=== PATIENT | female | born 1950 | race Caucasian/White ===

== ENCOUNTER → 2016-11-14 | Outpatient (CLI) | payer OTHER ==
[~2016-11-14] MED LIST: AMOX PO; FURO20 PO; KLOR20TA6 PO; LIPI40TA PO; LISI40TA PO; METF-324 PO; METO50TA11 PO; PAXI20TA26 PO; PREMPRO
[2016-11-14 13:43] LABS: AUTOMATED NEUTROPHIL # 4.2 TH/MM3 (1.8-7.7); BASOPHIL % 0.4 % (0.0-2.0); EOSINOPHIL # 0.2 TH/MM3 (0-0.4); EOSINOPHIL % 2.7 % (0.0-4.0); HEMATOCRIT 36.4 % (35.0-46.0); HEMO FLAGS DIFF FINAL; LYMPH % 32.1 % (9.0-44.0); LYMPHOCYTE # 2.3 TH/MM3 (1.0-4.8); MEAN CELL VOLUME 88.9 FL (80.0-100.0); MEAN CORPUSCULAR HEMOGLOBIN 30.4 PG (27.0-34.0); MEAN CORPUSCULAR HGB CONC 34.2 % (32.0-36.0); MONO % 6.1 % (0.0-8.0); NEUT % 58.7 % (16.0-70.0); PLATELET COUNT 315 TH/MM3 (150-450); WHITE BLOOD COUNT 7.2 TH/MM3 (4.0-11.0)
[2016-11-14 13:57] LABS: ANION GAP 9 MEQ/L (5-15); AST (GOT) 43 U/L (15-37); BICARBONATE 29.5 MEQ/L (21.0-32.0); BLOOD UREA NITROGEN 18 MG/DL (7-18); CHLORIDE 100 MEQ/L (98-107); GLOMERULAR FILTRATION RATE 58 ML/MIN (>89); GLUCOSE,FASTING 174 MG/DL (74-99); POTASSIUM 4.1 MEQ/L (3.5-5.1); SODIUM (NA) 138 MEQ/L (136-145)
[2016-11-14 14:03] LABS: ALKALINE PHOSPHATASE 68 U/L (45-117); ALT (GPT) 55 U/L (10-53); HDL CHOLESTEROL 54.3 MG/DL (40.0-60.0); LDL CHOLESTEROL 83 MG/DL (0-99); TOTAL BILIRUBIN ADULT 0.4 MG/DL (0.2-1.0)
== END ==
LOC: PLAB 08:12
PROVIDERS: ATTEND Family Medicine
DX: E78.2 Mixed hyperlipidemia (principal); E11.65 Type 2 diabetes mellitus with hyperglycemia; I10 Essential (primary) hypertension; F41.8 Other specified anxiety disorders; I73.9 Peripheral vascular disease, unspecified; Z68.34 Body mass index [BMI] 34.0-34.9, adult
CPT/HCPCS: 80053; 80061; 85025

== ENCOUNTER → 2017-08-28 | Outpatient (CLI) | payer OTHER ==
[2017-08-28 09:53] LABS: AUTOMATED NEUTROPHIL # 4.7 TH/MM3 (1.8-7.7); BASOPHIL % 0.5 % (0.0-2.0); EOSINOPHIL # 0.2 TH/MM3 (0-0.4); HEMATOCRIT 38.7 % (35.0-46.0); HEMO FLAGS DIFF FINAL; LYMPH % 27.6 % (9.0-44.0); LYMPHOCYTE # 2.1 TH/MM3 (1.0-4.8); MEAN CELL VOLUME 90.6 FL (80.0-100.0); MEAN CORPUSCULAR HGB CONC 33.1 % (32.0-36.0); MONO % 6.9 % (0.0-8.0); PLATELET COUNT 337 TH/MM3 (150-450); RED BLOOD COUNT 4.27 MIL/MM3 (4.00-5.30); RED CELL DISTRIBUTION WIDTH 14.7 % (11.6-17.2); WHITE BLOOD COUNT 7.6 TH/MM3 (4.0-11.0)
[2017-08-28 10:35] LABS: ANION GAP 11 MEQ/L (5-15); AST (GOT) 87 U/L (15-37); BICARBONATE 25.4 MEQ/L (21.0-32.0); BLOOD UREA NITROGEN 23 MG/DL (7-18); CHLORIDE 102 MEQ/L (98-107); GLOMERULAR FILTRATION RATE 47 ML/MIN (>89); GLUCOSE,FASTING 210 MG/DL (74-99); SODIUM (NA) 138 MEQ/L (136-145)
[2017-08-28 10:46] LABS: ALKALINE PHOSPHATASE 93 U/L (45-117); ALT (GPT) 83 U/L (10-53); FREE T4 1.01 NG/DL (0.76-1.46); TOTAL BILIRUBIN ADULT 0.3 MG/DL (0.2-1.0)
== END ==
LOC: PLAB 07:57
PROVIDERS: ATTEND Family Medicine
DX: E78.2 Mixed hyperlipidemia (principal); E11.65 Type 2 diabetes mellitus with hyperglycemia; F41.8 Other specified anxiety disorders; I10 Essential (primary) hypertension; Z68.34 Body mass index [BMI] 34.0-34.9, adult
CPT/HCPCS: 36415; 80053; 84439; 84443; 85025

== ENCOUNTER → 2017-10-15 | Outpatient (CLI) | payer OTHER ==
[2017-10-15 09:59] LABS: ALBUMIN 3.9 GM/DL (3.4-5.0); AST (GOT) 64 U/L (15-37); BICARBONATE 31.2 MEQ/L (21.0-32.0); BLOOD UREA NITROGEN 25 MG/DL (7-18); CHLORIDE 99 MEQ/L (98-107); CREATININE 1.22 MG/DL (0.50-1.00); GLOMERULAR FILTRATION RATE 44 ML/MIN (>89); GLUCOSE,FASTING 210 MG/DL (74-99); SODIUM (NA) 137 MEQ/L (136-145)
[2017-10-15 10:01] LABS: CHOLESTEROL 162 MG/DL (120-200)
[2017-10-15 10:04] LABS: ALKALINE PHOSPHATASE 105 U/L (45-117); ALT (GPT) 81 U/L (10-53); HDL CHOLESTEROL 42.6 MG/DL (40.0-60.0); LDL CHOLESTEROL 70 MG/DL (0-99); TOTAL BILIRUBIN ADULT 0.3 MG/DL (0.2-1.0); TOTAL PROTEIN 7.6 GM/DL (6.4-8.2); TRIGLYCERIDES 249 MG/DL (42-150)
== END ==
LOC: PLAB 07:59
PROVIDERS: ATTEND Family Medicine
DX: R74.8 Abnormal levels of other serum enzymes (principal); E78.2 Mixed hyperlipidemia; I10 Essential (primary) hypertension; E11.65 Type 2 diabetes mellitus with hyperglycemia; R79.89 Other specified abnormal findings of blood chemistry
CPT/HCPCS: 36415; 80053; 80061

== ENCOUNTER 2018-02-18 09:49 | Emergency (ER) | payer OTHER ==
[~2018-02-18] VITALS: Ht 171.4 cm; Wt 103.9 kg
[2018-02-18 09:53] VITALS: BP 156/69; PULSE 84; RESP 16; TEMP 97.9; O2SAT 97
[2018-02-18] MEDS ORDERED: FURO1TAB60 PO (10:09)
[2018-02-18] MEDS ORDERED: LIPI40TA PO (10:09)
[2018-02-18] MEDS ORDERED: LISI40TA PO (10:09)
[2018-02-18] MEDS ORDERED: ZOLO50TA PO (10:09)
[2018-02-18] MEDS ORDERED: METF-382 PO (10:09)
[2018-02-18] MEDS ORDERED: LANTUS2P SQ (10:09)
[2018-02-18] MEDS ORDERED: TOPR50TA PO (10:09)
[2018-02-18] MEDS ORDERED: GLIM1 PO (10:09)
--- NOTE | 2018-02-18 10:22 | PD ---
HPI Chief Complaint: Injury Time Seen by Provider: 10:00 Travel History International Travel<30 days: No Contact w/Intl Traveler<30days: No Traveled to known affect area: No History of Present Illness HPI 67-year-old female presents emergency department for evaluation of right knee pain that started after chiropractic adjustment. Patient states that Friday she had increased difficulty walking and thought the pain would go away however, he has not which is the reason why she presents today. Says she has had multiple adjustments previously without any issues. patient states that the pain is 3/4 out of 10 with rest and increases significantly with walking. Says the pain is located in the joint line says it does feel swollen. No radiation of pain. patient says she has had multiple injuries to this knee previously and has seen Ortho for her knee but this is been 15 years ago. Patient denies any numbness or tingling of the extremity. Denies any weakness. PFSH Past Medical History Hx Anticoagulant Therapy: No Cardiovascular Problems: Yes (htn on meds) High Cholesterol: Yes Diabetes: Yes (type 2) Patient Takes Glucophage: Yes Diminished Hearing: No Hypertension: Yes Influenza Vaccination: No (ALLERGIC TO ) ?: Not Menopausal: Yes Tubal Ligation: Yes Past Surgical History Appendectomy: Yes Cholecystectomy: Yes Tonsillectomy: Yes (1953) Other Surgery: Yes (LIPOMA RIGHT JAW) Social History Alcohol Use: Yes (RARELY) Tobacco Use: No Substance Use: No Allergies-Medications (Allergen,Severity, Reaction): Coded Allergies: Influenza Virus Vaccines (Unverified Allergy, Severe, Anaphylaxis, 02/18/18) exenatide (Verified Allergy, Severe, Anaphylaxis, 02/18/18) hydrochlorothiazide (Unverified Allergy, Severe, Anaphylaxis, 02/18/18) levofloxacin (Unverified Allergy, Severe, 02/18/18) sulfamethoxazole (Verified Allergy, Severe, Anaphylaxis, 02/18/18) tetanus toxoid, adsorbed (Unverified Allergy, Severe, Anaphylaxis, 02/18/18) trimethoprim (Verified Allergy, Severe, Anaphylaxis, 02/18/18) Reported Meds & Prescriptions Reported Meds & Active Scripts Active Reported Toprol XL (Metoprolol Succinate) 50 Mg Tab 50 Mg PO DAILY Metformin ER (Metformin HCl) 1,000 Mg Ángela 1,000 Mg PO BID With evening meal Lisinopril 40 Mg Tab 40 Mg PO DAILY Lasix (Furosemide) 40 Mg Tab 40 Mg PO DAILY Lipitor (Atorvastatin Calcium) 40 Mg Tab 40 Mg PO HS Lantus Inj (Insulin Glargine) 1,000 Unit/10 Ml Vial 45 Units SQ HS Amaryl (Glimepiride) 1 Mg Tab 1 Mg PO DAILY Take with breakfast or first main meal Zoloft (Sertraline HCl) 50 Mg Tab 50 Mg PO HS Review of Systems Except as stated in HPI: all other systems reviewed are Neg Physical Exam Narrative GENERAL: Well-nourished, well-developed patient. SKIN: Focused skin assessment warm/dry. HEAD: Normocephalic. EYES: No scleral icterus. No injection or drainage. NECK: Supple, trachea midline. No JVD or lymphadenopathy. CARDIOVASCULAR: Regular rate and rhythm without murmurs, gallops, or rubs. RESPIRATORY: Breath sounds equal bilaterally. No accessory muscle use. MUSCULOSKELETAL: RLE knee-edema to the anteromedial aspect of the inferior portion of patella, tenderness palpation to the joint line, popliteal pulse present, neurologically intact, pulse motor sensory intact. Grade 5/5 strength. No crepitus or deformities LLE- knee with mild edema over the anteromedial aspect of patella without TTP. No crepitus or deformities. Neurovascular intact BACK: Nontender without obvious deformity. No CVA tenderness. Data Data Last Documented VS Vital Signs Date Time Temp Pulse Resp B/P (MAP) Pulse Ox O2 Delivery O2 Flow Rate FiO2 02/18/18 10:10 Room Air 02/18/18 09:53 97.9 84 16 156/69 (98) 97 Orders Orders Knee, Complete (4vws) (02/18/18 ) Ed Discharge Order (02/18/18 11:07) MDM Medical Decision Making Medical Screen Exam Complete: Yes Emergency Medical Condition: Yes Differential Diagnosis Knee sprain, knee fracture, knee strain, knee contusion Narrative Course 67-year-old female presents emergency department for evaluation of right knee pain after an adjustment from the chiropractor that occurred . Vital signs are stable. Physical exam findings demonstrate tenderness palpation of the joint line without deformities. Mild edema about the patella. Last Impressions Knee X-Ray 02/18/18 0000 Signed Impressions: Service Date/Time: Wednesday, February 18, 2018 10:37 - CONCLUSION: 1. Minimal, early osteoarthritic changes. 2. Minimal suprapatellar effusion. Otherwise, nothing acute Juanjo Mohr MD Patient's history and physical most consistent with a knee sprain versus effusion versus a strain. Patient advised to follow-up with orthopedic physician. Obtain knee sleeve to reduce swelling. Patient to offload when possible. Follow-up with primary care physician within 2-3 days. Return to the emergency room for worsening persistent symptoms. Diagnosis Primary Impression: Knee sprain Qualified Codes: S83.91XA - Sprain of unspecified site of right knee, initial encounter Additional Impression: Knee effusion, right Referrals: Orthopedist Departure Forms: Tests/Procedures, Work Release Enter return to work date: February 20, 2018 Special Instructions: Please allow frequent offloading of knee to reduce swelling and pain until cleared by ortho or PCP. Additional Instructions: Use ice or heat for symptom relief. If no contraindications, you may use Tylenol or Motrin per package instructions for your pain. Elevate the joint above the heart to reduce swelling. You may use compression with Mik wrap or similar to reduce swelling. If symptoms persist or worsen, return to the emergency department. Follow up with your primary care physician within 2 days. Disposition: 01 DISCHARGE HOME Condition: Stable Shereen Spence February 18, 2018 10:22
--- NOTE | 2018-02-18 10:59 | RADRPT ---
EXAM DATE/TIME: 02/18/2018 10:37 [facility] COMPARISON: No previous studies available for comparison. INDICATIONS : Right knee pain, after chiropractor adjustment. MEDICAL HISTORY : None. SURGICAL HISTORY : None. ENCOUNTER: Initial ACUITY: 4 - 6 days PAIN SCORE: 3/10 LOCATION: Right knee FINDINGS: Four view examination of the right knee demonstrates no evidence of fracture or dislocation. Bony mi neralization is normal. Minimal loss of the medial tibiofemoral joint space. Minimal suprapatellar ef fusion. Minimal atherosclerotic calcification of the regional vasculature. CONCLUSION: 1. Minimal, early osteoarthritic changes. 2. Minimal suprapatellar effusion. Otherwise, nothing acute Juanjo Mohr MD on February 18, 2018 at 10:54 Board Certified Radiologist. This report was verified electronically.
== END 2018-02-18 11:19 | disposition home or self-care (01) ==
LOC: PHEFT 09:49
DX: S83.91XA Sprain of unspecified site of right knee, initial encounter (principal); I10 Essential (primary) hypertension; E78.00 Pure hypercholesterolemia, unspecified; E11.9 Type 2 diabetes mellitus without complications; Z79.4 Long term (current) use of insulin; Z79.899 Other long term (current) drug therapy; X58.XXXA Exposure to other specified factors, initial encounter
CPT/HCPCS: 73564; 99283

== ENCOUNTER 2018-03-10 09:59 | Emergency (ER) | payer OTHER ==
[~2018-03-10] VITALS: Ht 170.2 cm; Wt 103.0 kg
[~2018-03-10 09:59] MED LIST changes: -AMOX PO; +FURO1TAB60 PO; -FURO20 PO; +GLIM1 PO; -KLOR20TA6 PO; +LANTUS2P SQ; -METF-324 PO; +METF-382 PO; -METO50TA11 PO; -PAXI20TA26 PO; -PREMPRO; +TOPR50TA PO; +ZOLO50TA PO
[2018-03-10 10:02] VITALS: BP 223/105; PULSE 83; RESP 18; TEMP 98.6; O2SAT 97
[2018-03-10] MEDS ORDERED: INDOMETHACIN 25 MG CAP PO ONE (10:30)
[2018-03-10] MEDS ORDERED: COLCHICINE 0.6 MG TAB PO ONE ×2 (10:30→11:15)
[2018-03-10 10:48] VITALS: BP 160/71
[2018-03-10 10:49] LABS: BICARBONATE 29.2 MEQ/L (21.0-32.0); CALCIUM 9.4 MG/DL (8.5-10.1)
[2018-03-10 10:53] LABS: CREATININE 1.1 MG/DL (0.50-1.00)
--- NOTE | 2018-03-10 11:12 | PD ---
HPI Chief Complaint: Edema Time Seen by Provider: 10:15 Travel History International Travel<30 days: No Contact w/Intl Traveler<30days: No Traveled to known affect area: No History of Present Illness HPI Patient is a 68-year-old female with history of hypertension, diabetes, hyperlipidemia, presents the emergency room for evaluation of possible gout. Patient reports that she noticed increased edema and pain to her right foot which began last night. Patient reports that she has never been diagnosed with gout before but her father does suffer from gout. Patient reports that her right big toe digit #1 is tender and swollen. Patient denies any trauma to the foot. Patient with no radiation of pain. Patient with no fever or chills, no other complaints. PFSH Past Medical History Hx Anticoagulant Therapy: No Cardiovascular Problems: Yes High Cholesterol: Yes Diabetes: Yes Patient Takes Glucophage: Yes Diminished Hearing: No Hypertension: Yes Influenza Vaccination: No ?: Not Menopausal: Yes Tubal Ligation: Yes Past Surgical History Appendectomy: Yes Cholecystectomy: Yes Tonsillectomy: Yes (1953) Other Surgery: Yes (LIPOMA RIGHT JAW) Social History Alcohol Use: No Tobacco Use: No Substance Use: No Allergies-Medications (Allergen,Severity, Reaction): Coded Allergies: Influenza Virus Vaccines (Unverified Allergy, Severe, Anaphylaxis, 03/10/18 ) exenatide (Verified Allergy, Severe, Anaphylaxis, 03/10/18) hydrochlorothiazide (Unverified Allergy, Severe, Anaphylaxis, 03/10/18) levofloxacin (Unverified Allergy, Severe, 03/10/18) sulfamethoxazole (Verified Allergy, Severe, Anaphylaxis, 03/10/18) tetanus toxoid, adsorbed (Unverified Allergy, Severe, Anaphylaxis, 03/10/18 ) trimethoprim (Verified Allergy, Severe, Anaphylaxis, 03/10/18) Reported Meds & Prescriptions Reported Meds & Active Scripts Active Reported Toprol XL (Metoprolol Succinate) 50 Mg Tab 50 Mg PO DAILY Metformin ER (Metformin HCl) 1,000 Mg Ángela 1,000 Mg PO BID With evening meal Lisinopril 40 Mg Tab 40 Mg PO DAILY Lasix (Furosemide) 40 Mg Tab 40 Mg PO DAILY Lipitor (Atorvastatin Calcium) 40 Mg Tab 40 Mg PO HS Lantus Inj (Insulin Glargine) 1,000 Unit/10 Ml Vial 45 Units SQ HS Amaryl (Glimepiride) 1 Mg Tab 1 Mg PO DAILY Take with breakfast or first main meal Zoloft (Sertraline HCl) 50 Mg Tab 50 Mg PO HS Review of Systems General / Constitutional: No: Fever Eyes: No: Visual changes HENT: No: Headaches Cardiovascular: No: Chest Pain or Discomfort Respiratory: No: Shortness of Breath Gastrointestinal: No: Abdominal Pain Genitourinary: No: Dysuria Musculoskeletal: No: Pain Skin: Positive Other (Pain and swelling to the right big toe), No Rash Neurologic: No: Weakness Psychiatric: No: Depression Endocrine: No: Polydipsia Hematologic/Lymphatic: No: Easy Bruising Physical Exam Narrative GENERAL: Well-nourished, well-developed patient. SKIN: Focused skin assessment warm/dry. HEAD: Normocephalic. EYES: No scleral icterus. No injection or drainage. NECK: Supple, trachea midline. No JVD or lymphadenopathy. CARDIOVASCULAR: Regular rate and rhythm without murmurs, gallops, or rubs. RESPIRATORY: Breath sounds equal bilaterally. No accessory muscle use. GASTROINTESTINAL: Abdomen soft, non-tender, nondistended. MUSCULOSKELETAL: No cyanosis, or edema. Right lower extremity: Patient with pain and swelling to the right big toe: digit #1 LLE: normal exam BACK: Nontender without obvious deformity. No CVA tenderness. Data Data Last Documented VS Vital Signs Date Time Temp Pulse Resp B/P (MAP) Pulse Ox O2 Delivery O2 Flow Rate FiO2 03/10/18 10:48 160/71 (100) 03/10/18 10:02 98.6 83 18 97 Orders Orders Uric Acid (03/10/18 10:25) Basic Metabolic Panel (Bmp) (03/10/18 10:25) Colchicine (Colchicine) (03/10/18 10:30) Indomethacin (Indocin) (03/10/18 10:30) Colchicine (Colchicine) (03/10/18 11:15) Labs Laboratory Tests Test 03/10/18 10:30 Blood Urea Nitrogen 15 MG/DL Creatinine 1.10 MG/DL Random Glucose 225 MG/DL Calcium Level 9.4 MG/DL Sodium Level 137 MEQ/L Potassium Level 4.2 MEQ/L Chloride Level 100 MEQ/L Carbon Dioxide Level 29.2 MEQ/L Anion Gap 8 MEQ/L Estimat Glomerular Filtration Rate 50 ML/MIN MDM Medical Decision Making Medical Screen Exam Complete: Yes Emergency Medical Condition: Yes Medical Record Reviewed: Yes Interpretation(s) Vital Signs Date Time Temp Pulse Resp B/P (MAP) Pulse Ox O2 Delivery O2 Flow Rate FiO2 03/10/18 10:48 160/71 (100) 03/10/18 10:02 98.6 83 18 223/105 (144) 97 Differential Diagnosis Gout versus cellulitis Narrative Course During the course of the patients emergency department visit, the patients history, examination, and differential diagnosis were reviewed with the patient. The patient was placed on a patient monitor with oximetry and frequent blood pressure monitoring. The patient was initially provided colchicine 1.2 mg p.o., another dose of colchicine 0.6 mg was given 1 hour after her initial dose. Patient was also given a dose of indomethacin. Narcotic pain medications were held as patient is driving home today. Steroids are also held as patient is a diabetic. The patients laboratory studies were reviewed and remarkable for: Laboratory Tests Test 03/10/18 10:30 Blood Urea Nitrogen 15 MG/DL (7-18) Creatinine 1.10 MG/DL (0.50-1.00) Random Glucose 225 MG/DL (74-106) Calcium Level 9.4 MG/DL (8.5-10.1) Sodium Level 137 MEQ/L (136-145) Potassium Level 4.2 MEQ/L (3.5-5.1) Chloride Level 100 MEQ/L (98-107) Carbon Dioxide Level 29.2 MEQ/L (21.0-32.0) Anion Gap 8 MEQ/L (5-15) Estimat Glomerular Filtration Rate 50 ML/MIN (>89) Uric acid is pending - this is waiting to be sent to [facility] - patient does not want to wait for this lab to be resulted, she will call back for lab results Plan to discharge patient with treatment for gout. She will follow-up with her primary care doctor and will return to the emergency room as needed. Diagnosis Primary Impression: Gout attack Qualified Codes: M10.9 - Gout, unspecified Patient Instructions: General Instructions Additional Instructions: Please provide patient with a copy of her lab work at discharge Please follow up with your primary care doctor in 2-3 days Return to the ER if symptoms worsen or progress Return to the ER as needed Please do not drive or operate heavy machinery while taking narcotic pain medications. Med/Other Pt SpecificInfo: Prescription(s) given Scripts Oxycodone-Acetaminophen (Percocet) 5-325 mg Tab 1 TAB PO Q6H Y for PAIN, #12 TAB 0 Refills Prov: Pema Ramos DO 03/10/18 Indomethacin (Indomethacin) 50 Mg Cap 50 MG PO TID, #30 CAP 0 Refills Take with food, milk, or antacids to decrease stomach adverse effects. Prov: Pema Ramos DO 03/10/18 Disposition: 01 DISCHARGE HOME Condition: Stable Pema Ramos DO March 10, 2018 11:12
[2018-03-10] MEDS ORDERED: INDO50CA PO (11:17)
[2018-03-10] MEDS ORDERED: PERC5TAB12 PO (11:17)
== END 2018-03-10 11:40 | disposition home or self-care (01) ==
LOC: PHED 09:59
DX: M10.9 Gout, unspecified (principal); I10 Essential (primary) hypertension; E11.9 Type 2 diabetes mellitus without complications; E78.5 Hyperlipidemia, unspecified; E78.00 Pure hypercholesterolemia, unspecified; Z79.4 Long term (current) use of insulin; Z79.899 Other long term (current) drug therapy; Z88.2 Allergy status to sulfonamides; Z88.8 Allergy status to other drugs, medicaments and biological substances
CPT/HCPCS: 80048; 84550; 99283